=== PATIENT | male | born 1990 | race African-American/Black ===

== ENCOUNTER 2016-09-08 08:29 | Inpatient (IN) | payer OTHER ==
--- NOTE | ~2016-09-08 | CT2 ---
[facility] A Service of [facility] RADIOLOGY TEXT RESULTS PATIENT: MANOLO ROBBINS LOCATION: [facility] [id number] : [birth year] UNIT #: [id number] AGE: [address]: Dianna Dent MD SEX: M ORDER DR: [id number] [facility] [address] [place], [place] [address] [id number] MR#: [id number] Acc #: [id number] NAME: MANOLO ROBBINS : 1990 SEX: M STUDY DATE/TIME: 09/08/2016 11:05 UNIT: [facility] ROOM: STUDY DESCRIPTION: CT Abd and Pelv W Cont Attending Physician: Jana Flannery P.A.-C. Ordering Physician: Jana Flannery P.A.-C. Primary Care Physician: Primary Care Physician No MEDICAL IMAGING REPORT This report is preliminary unless electronic signature is present EXAM CT abdomen and pelvis with IV contrast 09/08/[address] abdomen and pelvis with IV contrast with multiplanar reformats. This CT exam was performed with one or more of the following radiation dose reduction techniques: automatic exposure control, adjustment of mA and/or kV according to patient size, and iterative reconstruction. HISTORY Epigastric pain for two days. FINDINGS The lung bases are normal. Abdomen: The liver and gallbladder are normal. The spleen is normal, but there is retroperitoneal fascial stranding, thickening of the pancreas and while the pancreas enhancing normally the findings are suggestive of acute pancreatitis. There is no pancreatic or biliary ductal dilatation. There is trace ascites. The kidneys and adrenal glands are normal except for an approximately 10 mm right renal upper pole simple cortical cyst. The aorta is normal in caliber. There is some mild bowel wall thickening in the duodenum and proximal jejunum but no obstruction. The findings are presumably secondary to pancreatitis rather than primary. Pelvis: The appendix is normal. There is trace pelvic ascites but no mass or inflammatory change or abnormal fluid collection. There is no hernia or [facility] RADIOLOGY TEXT RESULTS PATIENT: MANOLO ROBBINS [id number] [birth year] UNIT #: [id number] AGE: [address]: Dianna Dent MD SEX: M ORDER DR: bowel obstruction. IMPRESSION 1. Parapancreatic fat stranding and pancreatic thickening. There is no biliary pancreatic ductal dilatation. Findings suggest acute pancreatitis. The pancreas enhances normally and while there is trace ascites and again retroperitoneal fascial fluid, there is no discrete or loculated fluid collection. 2. There is some bowel wall thickening in the duodenum and proximal jejunum but this is probably secondary to the pancreatitis rather than the primary process. The portal vein and other upper abdominal vasculature appears normal. 3. Trace ascites in the abdomen and pelvis. 4. Normal appendix. 5. Incidental note made of 1 cm right renal upper pole simple cortical cyst. Dictated by... Richard Burroughs M.D. THIS IS AN ELECTRONICALLY VERIFIED REPORT Richard Burroughs M.D. at 09/09/2016 10:30 AM NAJMA/luis TD: 09/08/2016 13:52 JOB #: [id number] MEDICAL IMAGING REPORT Page 1 of 1 COPY
--- NOTE | ~2016-09-08 | US6 ---
[facility] A Service of [facility] RADIOLOGY TEXT RESULTS PATIENT: MANOLO ROBBINS LOCATION: [place] [address] : [birth year] UNIT #: [id number] AGE: [address]: Dianna Dent MD SEX: M ORDER DR: [id number] [place] [id number] [facility]. [place], [place] [address] [id number] MR#: [id number] Acc #: [id number] NAME: MANOLO ROBBINS : 1990 SEX: M STUDY DATE/TIME: 09/09/2016 7:48 UNIT: [facility] ROOM: [facility] STUDY DESCRIPTION: US Abdominal Limited Attending Physician: Dianna Dent M.D. Ordering Physician: Tosin Smith M.D. Primary Care Physician: Primary Care Physician No MEDICAL IMAGING REPORT This report is preliminary unless electronic signature is present EXAM Right upper quadrant ultrasound 09/09/2016 INDICATION Abdominal pain for last 4 days. FINDINGS Sonographic evaluation is performed of the right upper quadrant in multiple planes. Comparison made with CT abdomen from 09/08/2016. Pancreas appears edematous in keeping with acute pancreatitis as seen on the CT. The liver is echogenic compatible with fatty infiltration. No focal liver lesion is seen. Right kidney is morphologically normal and nonobstructed. Gallbladder is normal. No stones are seen. There is no gallbladder wall thickening. Common duct is normal in caliber at about 3 mm internal diameter. IMPRESSION 1. Normal gallbladder. No biliary obstruction. 2. Edematous pancreas in keeping with acute pancreatitis seen by CT. 3. Fatty liver. Dictated by... Easton Brock Jr., M.D. THIS IS AN ELECTRONICALLY VERIFIED REPORT Easton Brock Jr., M.D. at 09/09/2016 5:03 PM RAY/duy TD: 09/09/2016 10:23 JOB #: [id number] [facility] A Service of [facility] RADIOLOGY TEXT RESULTS PATIENT: MANOLO ROBBINS LOCATION: [facility] [id number] : [birth year] UNIT #: [id number] AGE: [address]: Dianna Dent MD SEX: M ORDER DR: MEDICAL IMAGING REPORT Page 1 of 1 COPY
--- NOTE | ~2016-09-08 | HP ---
Unit #: [id number] #: [id number] Patient: MANOLO ROBBINS [id number] [address] [place], [place] [address] [id number] E MR#: [id number] NAME: MANLOO ROBBINS ROOM: Age: 26 Sex: M Admission Date: 09/08/2016 : 1990 Attending Physician: Jana Flannery P.A.-C. Primary Care Physician: No Primary Care Physician HISTORY AND PHYSICAL CHIEF COMPLAINT Seizure. HISTORY OF PRESENT ILLNESS The patient is a 26-year-old male with past medical history of seizure disorder, alcohol abuse, who presented to the emergency department for evaluation of the above. The patient apparently had two seizures within the past 24 hours. He is on Keppra and states that he has been taking his medications as prescribed. He is a daily drinker. He states that he has had abdominal pain for the past three days. He states the pain is in his upper abdomen. He describes it as "sharp" and "achy." There are no exacerbating or alleviating factors. He denies any similar pain. He has had one bout of nonbloody emesis within the past 24 hours. He denies any diarrhea. He has not had a bowel movement in the past couple of days. In the emergency department, lipase was 437. Alcohol level less than 5. CT of the abdomen and pelvis showed findings concerning for pancreatitis. He was given 500 mg of Keppra as well as 1 L of normal saline, 4 mg of Zofran, 10 mg of Bentyl, 4 mg of morphine, and a rally pack. He is being admitted to [facility] for evaluation and further treatment. PAST MEDICAL HISTORY Seizure disorder diagnosed about two years ago, followed by [facility], maintained on Keppra. PAST SURGICAL HISTORY None. SOCIAL HISTORY The patient lives with his brother. He is a daily drinker. He states that he drinks two, possibly 64 ounce, beers daily. He denies ever going through withdrawal. He denies illicit drug use. He smokes a pack of cigarettes daily. He is currently unemployed. FAMILY HISTORY Notable for his dad having diabetes. There is no family history of seizures. ALLERGIES No known allergies. Unit #: [id number] #: [id number] Patient: MANOLO ROBBINS HOME MEDICATIONS Keppra 500 mg twice daily. REVIEW OF SYSTEMS A complete review of systems is negative except as indicated in the HPI. DIAGNOSTIC STUDIES LABORATORY: Complete blood count is completely normal. Comprehensive metabolic panel notable for sodium of 133, chloride 96, glucose 153. AST 67, lipase 437. Alcohol level is less than 5. Urine tox screen is negative. Magnesium 1.6. IMAGING: CT of the abdomen and pelvis shows findings suggestive of pancreatitis. PHYSICAL EXAMINATION VITAL SIGNS: Temperature is 98.4, pulse 101, respirations 21, blood pressure 143/93, oxygen saturation is 100% on room air. GENERAL: The patient is an -Stateless male who is awake and alert in no acute distress. HEENT: The head is atraumatic. Mucous membranes are moist. NECK: Supple. Trachea is midline. CARDIOVASCULAR: Regular rate and rhythm. LUNGS: Clear to auscultation bilaterally with no increased work of breathing. ABDOMEN: Soft. He is mildly tender to palpation in the epigastric region. Bowel sounds are present in all four quadrants. EXTREMITIES: Nontender with no pedal edema. NEUROLOGIC: The patient is awake and alert. He follows commands. PYSCHIATRIC: Mood and affect are normal. The patient is cooperative. SKIN: Skin of examined areas is warm and dry. ASSESSMENT The patient is a 26-year-old male with: 1. Seizure: The patient has been taking his Keppra as prescribed. He received 500 mg of Keppra in the emergency department. 2. History of seizure disorder maintained on Keppra 500 mg p.o. b.i.d. followed by [facility]. He has an appointment on September 13. 3. Acute pancreatitis: Likely secondary to alcohol abuse with a lipase of 437. 4. Alcohol abuse with last drink being yesterday. 5. Tobacco abuse. PLAN 1. Admit to intermediate level. 2. NPO. 3. Seizure precautions. 4. Change Keppra to IV. 5. IV fluids per alcohol withdrawal protocol. 6. Alcohol withdrawal protocol. 7. P.r.n. morphine. 8. P.r.n. Zofran. 9. seniour insight manager/social work consult regarding alcohol abuse. 10. Check magnesium level. 11. Potassium/magnesium protocol. 12. Repeat labs in the morning including lipase and magnesium. 13. Sequential compression devices for deep venous thrombosis prophylaxis. Unit #: [id number] #: [id number] Patient: MANOLO ROBBINS 14. Additional workup and consultants based on above. Dictated by Omar Funk TD: 09/08/2016 13:25 JOB #: [id number] HISTORY AND PHYSICAL Page 1 of 1 X Tosin Smith MD X HISTORY AND PHYSICAL
--- NOTE | ~2016-09-08 | DS ---
Unit #: [id number] #: [id number] Patient: MANOLO ROBBINS [id number] [address] [address] [id number] I MR#: [id number] NAME: MANOLO ROBBINS ROOM: [facility] Age: 26 Sex: M Admission Date: 09/08/2016 : 1990 Discharge Date: Attending Physician: Dianna Dent M.D. Primary Care Physician: No Primary Care Physician DISCHARGE SUMMARY DISCHARGE DIAGNOSES 1. Acute alcoholic pancreatitis. 2. Seizure, likely secondary to alcohol abuse: Patient does have a history of seizures. 3. Alcohol dependence with mild delirium tremors. 4. Smoking. 5. Hypokalemia. 6. Alcoholic liver disease. 7. Hypertension, uncontrolled. CONSULTATIONS None. PROCEDURES None. LAB DATA Sodium 135, potassium 3.2, creatinine 0.7. Liver enzymes normal. Lipase 274, magnesium 1.9, phosphorus 3.3, WBC 10.1, hemoglobin 38.8, platelets 168. CT of the abdomen shows peripancreatic fat stranding and pancreatic thickening. No biliary pancreatic duct dilatation. Findings suggestive of acute pancreatitis. Ultrasound of the abdomen shows normal gallbladder. No gallbladder obstruction. Urine drug screen negative. ALLERGIES None. DISCHARGE MEDICATIONS 1. Metoprolol 12.5 mg p.o. b.i.d. 2. Multivitamin, one tablet daily. 3. Thiamine 100 daily. 4. Folic acid 1 mg daily. 5. Keppra 500 p.o. b.i.d. HOSPITALIZATION COURSE 26-year-old admitted because of seizure. Seizure, secondary to alcohol abuse: The patient does have a history of Unit #: [id number] #: [id number] Patient: MANOLO ROBBINS seizure. He was on Keppra. I advised to quit alcohol. Continue with Keppra 500 p.o. b.i.d. Acute alcoholic pancreatitis: CAT scan of the abdomen shows pancreatitis. Ultrasound negative for gallstones. Currently patient is tolerating diet. I am going to change him to low fat diet and discharge home. Advised to quit drinking. Alcohol dependency with delirium tremors: Patient was started on alcohol withdrawal protocol. Currently, patient is not having delirium tremors, not hallucinating. The patient will be discharged home. Hypokalemia, replace with p.o. potassium. Hypertension, uncontrolled: I added metoprolol. I gave prescription. Discharge home. Follow with family physician in one week time. Continue with a low fat diet at home. Dictated by... Omar Ferrara/monika TD: 09/10/2016 12:48 JOB #: [id number] DISCHARGE SUMMARY Page 1 of 1 X Dianna Dent MD X DISCHARGE SUMMARY
[~2016-09-08 08:29] MED LIST: AMOXICILLIN PO
[2016-09-08 09:04] LABS: BASOPHIL% 0.2 % (0-2.5); EOSINOPHIL% 0.3 % (0.0-7.0); HEMOGLOBIN 14.9 gm/dL (13.0-16.0); LYMPHOCYTE# 0.9 X10e3 (1.0-3.5); LYMPHOCYTE% 9.2 % (17.0-45.0); MEAN CELL VOLUME 93.1 FL (83-96); MEAN CORPUSCULAR HEMOGLOBIN 31.4 PG (28-34); MEAN CORPUSCULAR HGB CONC 33.8 g/dL (30-36); MEAN PLATELET VOLUME 7.9 FL (6.5-11.5); MONOCYTE# 0.7 X10e3 (0-1.0); MONOCYTE% 6.7 % (3.0-12.0); NEUTROPHIL# 8.5 X10e3 (1.5-7.1); NEUTROPHIL% 83.6 % (40-75); PLATELET COUNT 217 X10e3 (140-420); RED BLOOD COUNT 4.73 X10e (3.90-5.60); RED CELL DISTRIBUTION WIDTH 14.4 % (11.0-15.5); WHITE BLOOD COUNT 10.2 X10e3 (4.0-10.5)
[2016-09-08 09:09] LABS: DIFF IND NO
[2016-09-08 09:47] LABS: ALBUMIN SERUM 5.2 g/dL (3.5-5.0); ALCOHOL BLOOD <5 mg/dL (0); ALKALINE PHOSPHATASE 72 U/L (32-92); ALT (SGPT) 30 U/L (10-40); AST (SGOT) 67 U/L (10-42); BILIRUBIN, DIRECT 0.3 mg/dL (0.0-0.2); BILIRUBIN,INDIRECT 1.5 mg/dL (0.0-0.9); BILIRUBIN,TOTAL 1.8 mg/dL (0.2-2.0); BLOOD UREA NITROGEN 5 mg/dL (9-23); BUN/CREATININE RATIO 5.55; CALCIUM SERUM 9.6 mg/dL (8.4-10.2); CARBON DIOXIDE 23 mmol/L (22-31); CHLORIDE 96 mmol/L (100-111); CREATININE SERUM 0.9 mg/dL (0.6-1.4); GLOM FILT RATE Estimated 137.1 mL/min (>60); GLUCOSE FASTING 153 mg/dL (70-110); LIPASE 437 U/L (22-51); POTASSIUM 3.5 mmol/L (3.5-5.1); SODIUM 133 mmol/L (135-145)
[2016-09-08 10:01] LABS: AMPHETAMINE NEG (NEG); BARBITURATES NEG (NEG); BENZODIAZEPINES NEG (NEG); COCAINE NEG (NEG); MARIJUANA NEG (NEG); OPIATES NEG (NEG); TRICYCLIC ANTIDEPRESSANTS NEG (NEG); U METHADONE NEG (NEG)
[2016-09-08] MEDS ORDERED: KEPPRA500 M2 PO (12:27)
[2016-09-09 05:26] LABS: HEMATOCRIT 42.4 % (38.0-50.0); HEMOGLOBIN 14.3 gm/dL (13.0-16.0); MEAN CELL VOLUME 92.4 FL (83-96); MEAN CORPUSCULAR HEMOGLOBIN 31.1 PG (28-34); MEAN CORPUSCULAR HGB CONC 33.6 g/dL (30-36); MEAN PLATELET VOLUME 8.2 FL (6.5-11.5); RED BLOOD COUNT 4.59 X10e (3.90-5.60); RED CELL DISTRIBUTION WIDTH 14.4 % (11.0-15.5); WHITE BLOOD COUNT 9.8 X10e3 (4.0-10.5)
[2016-09-09 06:32] LABS: ALBUMIN SERUM 4.3 g/dL (3.5-5.0); BILIRUBIN,TOTAL 1.4 mg/dL (0.2-2.0); BUN/CREATININE RATIO 5.55; CALCIUM SERUM 9.3 mg/dL (8.4-10.2); CREATININE SERUM 0.9 mg/dL (0.6-1.4); GLOM FILT RATE Estimated 137.1 mL/min (>60); MAGNESIUM 1.8 mg/dL (1.6-3.0); POTASSIUM 3.7 mmol/L (3.5-5.1); PROTEIN TOTAL SERUM 6.7 g/dL (6.0-8.3)
[2016-09-10 06:38] LABS: HEMATOCRIT 41.5 % (38.0-50.0); HEMOGLOBIN 13.8 gm/dL (13.0-16.0); MEAN CORPUSCULAR HEMOGLOBIN 30.8 PG (28-34); MEAN CORPUSCULAR HGB CONC 33.1 g/dL (30-36); MEAN PLATELET VOLUME 8.1 FL (6.5-11.5); RED BLOOD COUNT 4.47 X10e (3.90-5.60); RED CELL DISTRIBUTION WIDTH 14.3 % (11.0-15.5); WHITE BLOOD COUNT 10.1 X10e3 (4.0-10.5)
[2016-09-10 07:22] LABS: ALBUMIN SERUM 4.2 g/dL (3.5-5.0); ALKALINE PHOSPHATASE 54 U/L (32-92); ALT (SGPT) 20 U/L (10-40); AST (SGOT) 35 U/L (10-42); BILIRUBIN,TOTAL 1.6 mg/dL (0.2-2.0); CALCIUM SERUM 9.2 mg/dL (8.4-10.2); CARBON DIOXIDE 25 mmol/L (22-31); CHLORIDE 97 mmol/L (100-111); CREATININE SERUM 0.7 mg/dL (0.6-1.4); GLOM FILT RATE Estimated 152.1 mL/min (>60); GLUCOSE FASTING 86 mg/dL (70-110); LIPASE 274 U/L (22-51); MAGNESIUM 1.9 mg/dL (1.6-3.0); PHOSPHOROUS 3.3 mg/dL (2.5-4.6); POTASSIUM 3.2 mmol/L (3.5-5.1); PROTEIN TOTAL SERUM 6.8 g/dL (6.0-8.3); SODIUM 135 mmol/L (135-145)
[2016-09-10 07:25] LABS: BLOOD UREA NITROGEN <5 mg/dL (9-23); BUN/CREATININE RATIO 7.14
[2016-09-10] MEDS ORDERED: METOPROLOL TAR25 MG PO (14:06)
[2016-09-10] MEDS ORDERED: CENTURY TABLET1 EACH PO (14:07)
[2016-09-10] MEDS ORDERED: THIAMINE HCL100 M1 PO (14:09)
[2016-09-10] MEDS ORDERED: FOLIC ACID1 MG PO (14:09)
== END 2016-09-10 14:39 | disposition home or self-care (01) | DRG 100 ==
LOC: CED 08:29 → C5C 12:00 → CED 14:41 → C5C 09-09 07:46
PROVIDERS: Family Medicine; Internal Medicine; Physician Assistant
DX: G40.89 Other seizures (principal); K85.20 Alcohol induced acute pancreatitis without necrosis or infection; F10.231 Alcohol dependence with withdrawal delirium; K70.9 Alcoholic liver disease, unspecified; F17.210 Nicotine dependence, cigarettes, uncomplicated; E87.6 Hypokalemia; I10 Essential (primary) hypertension; Z83.3 Family history of diabetes mellitus
CPT/HCPCS: 74177; 76705; 80048; 80053; 80076; 80307; 82150; 82947; 83690; 83735; 84100; 85025; 85027; 96361; 96374; 96375; 99285; C9113; G0480; J1953; J2270; J2405; J3411; J3475; J7042; Q9967